=== PATIENT | male | born 1975 | race Caucasian/White ===

== ENCOUNTER 2020-12-11 19:14 | Emergency (ER) | payer BC ==
[~2020-12-11] VITALS: Ht 177.8 cm; Wt 116.1 kg
[2020-12-11] MEDS ORDERED: DOXYCYCLINE HY100 MG PO (20:47)
== END 2020-12-11 21:04 | disposition home or self-care (01) ==
LOC: ED 19:14
DX: S60.454A Superficial foreign body of right ring finger, initial encounter (principal); W45.8XXA Other foreign body or object entering through skin, initial encounter
CPT/HCPCS: 73140; 99283-25